=== PATIENT | female | born 1985 | race Caucasian/White ===

== ENCOUNTER 2019-03-18 17:30 | Observation (INO) | payer OTHER ==
[2019-03-18 18:00] VITALS: BP 120/64
[2019-03-18] MEDS ORDERED: PREN-217 PO (18:03)
== END 2019-03-18 18:50 | disposition home or self-care (01) ==
LOC: 4S 17:30
PROVIDERS: ADMIT Obstetrics & Gynecology; ATTEND Obstetrics & Gynecology
DX: O62.9 Abnormality of forces of labor, unspecified (principal); Z3A.39 39 weeks gestation of pregnancy
CPT/HCPCS: 81002; G0378

== ENCOUNTER 2019-03-18 21:59 | Inpatient (IN) | payer OTHER ==
[~2019-03-18] VITALS: Ht 157.5 cm; Wt 71.2 kg
[~2019-03-18 21:59] MED LIST: PREN-217 PO
[2019-03-20] MEDS ORDERED: OXYTOCIN 30 UNITS/LACT RINGERS 500 ML IV ONE (16:20)
[2019-03-20] MEDS ORDERED: RINGERS SOLUTION,LACTATED 1,000 ML IV PRN (16:20)
[2019-03-20] MEDS ORDERED: METOCLOPRAMIDE HCL 5 MG/ML 2 ML VIAL IVP PRN (16:30)
[2019-03-20] MEDS ORDERED: CITRIC ACID/SODIUM CITRATE 30 ML SOLUTION UDCUP PO PRN (16:30)
[2019-03-20] MEDS ORDERED: CARBOPROST TROMETHAMINE 250 MCG/ML AMP IM PRN (16:30)
[2019-03-20] MEDS ORDERED: METHYLERGONOVINE MALEATE 0.2 MG/ML VIAL IM PRN (16:30)
[2019-03-20 17:14] VITALS: BP 116/60
[2019-03-20] MEDS ORDERED: PNV11TAB PO (17:34)
[2019-03-20 17:42] LABS: BASOPHILS % (AUTO) 0.2 % (0.0-2.0); EOSINOPHILS % (AUTO) 0.4 % (1.0-6.0); HEMATOCRIT 29.7 % (36-46); HEMOGLOBIN 10.2 g/dL (12.0-16.0); LYMPHOCYTES # (AUTO) 1.5 K/uL (1.0-4.8); LYMPHOCYTES % (AUTO) 17.2 % (22.0-44.0); MEAN CORPUSCULAR HEMOGLOBIN 33.1 pg (26.0-34.0); MEAN CORPUSCULAR HGB CONC 34.5 G/dL (31.0-37.0); MEAN CORPUSCULAR VOLUME 96 fL (80-100); MONOCYTES # (AUTO) 0.7 K/uL (0.1-1.0); MONOCYTES % (AUTO) 8.3 % (2.0-9.0); NEUTROPHILS # (AUTO) 6.6 K/uL (1.8-7.7); NEUTROPHILS % (AUTO) 73.9 % (40.0-70.0); PLATELET COUNT (AUTO) 159 K/uL (150-450)
[2019-03-20] MEDS: RINGERS SOLUTION,LACTATED 1,000 ML IV SCH ×3 (17:59→21:26)
[2019-03-20] MEDS ORDERED: RINGERS SOLUTION,LACTATED 1,000 ML IV SCH (18:29)
[2019-03-20] MEDS: MISOPROSTOL 50 MCG TABLET PO SCH ×2 (18:42→22:47)
[2019-03-20] MEDS ORDERED: OXYGEN THERAPY IH SCH (20:00)
[2019-03-21] MEDS: MISOPROSTOL 50 MCG TABLET PO SCH (02:57)
[2019-03-21] MEDS: FentaNYL CITRATE-PF 100 MCG/2 ML VIAL IVP PRN ×2 (03:15→03:20)
[2019-03-21] MEDS ORDERED: OXYTOCIN 30 UNITS/LACT RINGERS 500 ML IV PRN (05:10)
[2019-03-21] MEDS ORDERED: ROPIVACAINE HCL/PF 0.2% 100 ML ED PRN (09:21)
[2019-03-21] MEDS ORDERED: ONDANSETRON HCL 4 MG/2 ML VIAL IVP PRN (09:30)
[2019-03-21] MEDS ORDERED: NALBUPHINE HCL 10 MG/ML VIAL IVP PRN (09:30)
[2019-03-21] MEDS ORDERED: DiphenhydrAMINE HCL 50 MG/ML VIAL IVP PRN (09:30)
[2019-03-21] MEDS ORDERED: LIDOCAINE/PF 2% 5 ML VIAL ONE (09:52)
[2019-03-21] MEDS ORDERED: LANOLIN 7 GM OINTMENT TP PRN (14:30)
[2019-03-21] MEDS ORDERED: BENZOCAINE 20%/MENTHOL 56 GM SPRAY CANISTER TP PRN (14:30)
[2019-03-21] MEDS ORDERED: GLYCERIN/WITCH HAZEL LEAF 40 PADS JAR TP PRN (14:30)
[2019-03-21] MEDS ORDERED: ACETAMINOPHEN/CODEINE 300-30 MG TABLET PO PRN (14:30)
[2019-03-21] MEDS ORDERED: CeFAZolin 2 GM/DEXTROSE 50 ML IV ONE (15:30)
[2019-03-21] MEDS: IBUPROFEN 800 MG TABLET PO SCH ×2 (15:39→23:06)
[2019-03-21] MEDS: ACETAMINOPHEN/CODEINE 300-30 MG TABLET PO PRN ×2 (15:39→23:06)
[2019-03-22] MEDS: IBUPROFEN 800 MG TABLET PO SCH ×2 (05:20→13:08)
[2019-03-22] MEDS: ACETAMINOPHEN/CODEINE 300-30 MG TABLET PO PRN ×2 (05:20→13:08)
[2019-03-22] MEDS ORDERED: MAGNESIUM HYDROXIDE SUSPENSION 30 ML UDCUP PO SCH (09:00)
[2019-03-22] MEDS ORDERED: IBUP-2071 PO (12:27)
[2019-03-22] MEDS ORDERED: FERR-89 PO (12:31)
== END 2019-03-22 14:10 | disposition home or self-care (01) | DRG 807 ==
LOC: INTOOBSV 03-20 16:09 → OBSVTOIN 03-20 16:09 → 4S 03-20 16:09
PROVIDERS: ADMIT Obstetrics & Gynecology; ATTEND Obstetrics & Gynecology
PROC: 10E0XZZ Delivery of Products of Conception, External Approach (ICD-10-PCS; principal; 2019-03-21)
PROC: 10907ZC Drainage of Amniotic Fluid, Therapeutic from Products of Conception, Via Natural or Artificial Opening (ICD-10-PCS; 2019-03-21)
PROC: 3E0R3BZ Introduction of Anesthetic Agent into Spinal Canal, Percutaneous Approach (ICD-10-PCS; 2019-03-21)
PROC: 00HU33Z Insertion of Infusion Device into Spinal Canal, Percutaneous Approach (ICD-10-PCS; 2019-03-21)
PROC: 0W8NXZZ Division of Female Perineum, External Approach (ICD-10-PCS; 2019-03-21)
DX: O76 Abnormality in fetal heart rate and rhythm complicating labor and delivery (principal); Z37.0 Single live birth; Z3A.40 40 weeks gestation of pregnancy
CPT/HCPCS: 86850; 86900; 86901; J0690; J2590; J2795; J3010; J3490; J7120